=== PATIENT | female | born 1940 | race Caucasian/White ===

== ENCOUNTER 2023-08-11 07:59 | Inpatient (IN) | payer MEDICARE ==
[2023-08-11] VITALS (26 sets, daily range): BP systolic 122–172; BP diastolic 52–128
[~2023-08-11] VITALS: Ht 157.5 cm; Wt 49.2 kg
[~2023-08-11 07:59] MED LIST: AMLODIPINE5 MG OR; ASPIRIN325 MG OR; EQ IBUPROFEN200 MG OR; LEVOTHYROXIN25 MC1 PO; LEVOTHYROXIN50 MC1 PO; LEVOTHYROXIN50 MCG PO; LISINOPRIL5 MG OR
--- NOTE | 2023-08-11 08:05 | NUR ---
PT TO ROOM 9 VIA W/C, EKG, OBTAINED, ROOM NURSE NARN & PROVIDER NOTIFIED OF PT STATUS, AT BEDSIDE, CALL LIGHT IN REACH.
--- NOTE | 2023-08-11 08:20 | NUR ---
AFTER [address] MCCULLOUGH AT THE BEDSIDE TO ASSESS AND DISCUSS PLAN OF CARE. CARDIZEM BOLUS GIVEN AND CARDIZEM GTT INITIATED. HR AT THIS TIME IS 102.
[2023-08-11 09:02] LABS: BASO% 0.2 % (0-3); EOS% 0.2 % (0-8); HEMATOCRIT 41.6 % (37.0-47.0); IMMATURE GRANULOCYTES 0.3 % (0.0-5.0); LYMPH% 8.6 % (15-41); MEAN CELL VOLUME 93.3 fL CALC (80.0-100.0); MEAN CORPUSCULAR HGB 29.1 pG CALC (26.0-32.0); MEAN CORPUSCULAR HGB CONC 31.3 g/dL CAL (32.0-36.0); MONO% 7.8 % (2-13); NEUT# 10.45 thou/uL (2.00-7.15); NEUT% 82.9 % (42-76); RED BLOOD COUNT 4.46 mill/uL (4.20-5.60); RED CELL DISTRI WIDTH 13.1 % (11.5-15.5)
--- NOTE | 2023-08-11 09:26 | NUR ---
PATIENT RESTING. HR HAS IMPROVED. PATIENT STATES SHE IS FEELING MUCH BETTER. OXYGEN REMAINS IN PLACE.
[2023-08-11 09:37] LABS: ALBUMIN 4.3 g/dL (3.2-5.0); ANION GAP 20 (6-22 (CALC)); BUN 26 mg/dL (8-23); BUN/CREATININE RATIO 27 (12-20 (CALC)); CARBON DIOXIDE 22 mmol/l (22-30); CHLORIDE 102 mmol/l (95-108); GFR FOR AFR.AMER. > 60 ML/MIN (>=60 (CALC)); GFR OTHER RACES 53 ML/MIN (>=60 (CALC)); POTASSIUM 4.5 mmol/l (3.5-5.1); SODIUM 139 mmol/l (137-146)
[2023-08-11 09:41] LABS: ALKALINE PHOSPHATASE 177 u/l (38-126); BILIRUBIN, TOTAL 1.2 mg/dL (0.02-1.3); SGOT/AST 48 u/l (9-36)
--- NOTE | 2023-08-11 11:21 | NUR ---
accompained patient to radiology for a cta of the chest to r/o pe. Cardizem gtt continues at 10mg per hour.
--- NOTE | 2023-08-11 13:38 | NUR ---
PATIENT TO BE ADMITTED TO THE ICU ON A CARDIZEM GTT FOR NEW ONSET AFIB WITH RVR, PNUEMONIA AND STABLE ABDOMINAL ANURYSM.
--- NOTE | 2023-08-11 15:00 | NUR ---
PATIENT TAKEN TO ICU, BEDSIDE REPORT TO BE GIVEN TO RECIEVING NURSE. CARDIZEM GTT CONTINUES AT 15MG/HR.
--- NOTE | 2023-08-11 15:12 | NUR ---
PATIENT ARRIVED TO THE UNIT VIA STRETCHER ACCOMPAINED BY ER STAFF. PATIENT IS ALERT AND ORIENTED X 3. LUNGS CLEAR TO ASCULTATION. BREATHING EVEN AND UNLABORED ON 2L NC. DENIES PAIN AT THIS TIME. PATIENT AMBULATED FROM STRETCHER TO BED WITH MIN ASSIST. AFIB ON THE MONITOR. STATES SHE HAS NOT SEEN A PROVIDER X 20 YEARS, DOES NOT TAKE HOME MEDICATIONS. AFEBRILE. PERIPHERAL PULSES STRONG. STATES THAT SHE HAS A PROLAPSED BLADDER. NO APPARENT DISTRESS NOTED. CALLL LIGHT NEXT TO R HAND. WILL CONTINUE WITH PLAN OF CARE.
--- NOTE | 2023-08-11 16:00 | NUR ---
PATIENT SITTING UP IN BED. DENIES PAIN. NO APPARENT DISTRESS NOTED. AFIB ON THE MONITOR. WILL COTNINUE WITH PLAN OF CARE.
--- NOTE | 2023-08-11 18:00 | NUR ---
PATIENT SITTING UP IN BED. AT BEDSIDE. DENIES PAIN. AFIB ON THE MONITOR. NO APPARENT DISTRESS NOTED. WILL CONTINUE WITH PLAN OF CARE.
--- NOTE | 2023-08-11 19:00 | NUR ---
REPORT RECEIVED FROM OFF GOING NURSE.
--- NOTE | 2023-08-11 20:00 | NUR ---
PATIENT NOTED SITTING UP IN BED WITH SPOUSE AT BEDSIDE. SHE WAS ASSISTED TO RESTROOM WITH STANDBY ASSIST. SHE HAS A STEADY GAIT. SHE REFUSES TO USE THE BEDSIDE COMMODE. HER OUTPUT IS NOTED ADEQUATE. ASSESSMENT COMPLETED (SEE INTERVENTIONS). HER CARDIZEM WAS DECREASED FROM 10-5. WILL CONTINUE TO MONITOR AND TITRATE DRIP TOLERATED.
--- NOTE | 2023-08-11 22:00 | NUR ---
NO CHANGES NOTED, DRIP STILL RUNNING AT 5. WILL CONTINUE TO MONITOR.
--- NOTE | 2023-08-12 00:20 | NUR ---
CARDIZEM DRIP STOPPED. PATIENT STILL IN A FIB. HR NOTED CONTROLLED AT THIS TIME. WILL CONTINUE TO MONITOR.
[2023-08-12 05:26] LABS: BASO% 0.3 % (0-3); EOS% 1.3 % (0-8); HEMATOCRIT 36.5 % (37.0-47.0); HEMOGLOBIN 11.6 g/dl (12.0-16.0); IMMATURE GRANULOCYTES 0.8 % (0.0-5.0); LYMPH% 8.8 % (15-41); MEAN CELL VOLUME 93.4 fL CALC (80.0-100.0); MEAN CORPUSCULAR HGB 29.7 pG CALC (26.0-32.0); MEAN CORPUSCULAR HGB CONC 31.8 g/dL CAL (32.0-36.0); MONO% 7.8 % (2-13); NEUT# 11.73 thou/uL (2.00-7.15); RED BLOOD COUNT 3.91 mill/uL (4.20-5.60); RED CELL DISTRI WIDTH 13.4 % (11.5-15.5)
[2023-08-12 05:48] LABS: ALBUMIN 3.5 g/dL (3.2-5.0); ALKALINE PHOSPHATASE 147 u/l (38-126); ANION GAP 15 (6-22 (CALC)); BUN 20 mg/dL (8-23); BUN/CREATININE RATIO 23 (12-20 (CALC)); CARBON DIOXIDE 22 mmol/l (22-30); CHLORIDE 108 mmol/l (95-108); CREATININE 0.9 mg/dL (0.5-1.0); GFR FOR AFR.AMER. > 60 ML/MIN (>=60 (CALC)); GFR OTHER RACES 60 ML/MIN (>=60 (CALC)); HDL CHOLESTEROL 37 mg/dL (39.0-59.0); MAGNESIUM 2.1 mg/dL (1.6-2.3); POTASSIUM 4.2 mmol/l (3.5-5.1); SGOT/AST 30 u/l (9-36); SODIUM 141 mmol/l (137-146); TOTAL PROTEIN 6.6 g/dL (6.3-8.2); TOTAL TRIGLYCERIDES 70 mg/dl (0-149); VLDL CHOLESTROL 14 mg/dl (0-48 (CALC))
[2023-08-12 05:50] LABS: BILIRUBIN, TOTAL 0.7 mg/dL (0.02-1.3); CALCULATED LDLCHOLESTEROL 66 mg/dL (62-129 (CALC)); CHOLESTEROL HDL RATIO 3.2 (<4.4 (CALC)); TOTAL CHOLESTEROL 117 mg/dl (0-199)
--- NOTE | 2023-08-12 07:26 | NUR ---
PATIENT SITTING UP IN BED. ALERT AND ORIENTED X 3. STATES SHE EXPERIENCED BACK PAIN LAST NIGHT, BUT DENIES ANY PAIN THIS MORNING. AFEBRILE. AFIB ON THE MONITOR. LUNGS CLEAR TO ASCULTATON. 20 R/LAC FLUSHES WELL, NS KVO. SKIN IS DRY WITH AGE RELATED CHANGES, BUT INTACT. BP SLIGHTLY ELEVATED. PATIENT STATED SHE HAS A PROLAPSED BLADDER THAT "DOES NOT BOTHER HER". BREATHING EVEN AND UNLABORED AT 2L NC. DENIES USING OXYGEN AT HOME. NO APPARENT DISTRESS NOTED. BED IN LOW POSITION. CALL LIGHT RESTING NEXT TO RIGHT HAND. WILL CONTINUE WITH PLAN OF CARE.
--- NOTE | 2023-08-12 09:24 | NUR ---
CARDIZEM GTT RESTARTED AT 10 mL/hr.
--- NOTE | 2023-08-12 10:19 | NUR ---
PATIENT UP TO CHAIR. AT BEDSIDE. AFIB ON THE MONITOR. DENIES PAIN. NO APPARENT DISTRESS NOTED. WILL CONTINUE WITH PLAN OF CARE.
--- NOTE | 2023-08-12 10:21 | NUR ---
CHENGET OFFERED BED BATH AND DECLINED.
--- NOTE | 2023-08-12 12:24 | NUR ---
PATIENT SITTING UP IN BED EATING LUNCH. AT BEDSIDE. DENIES PAIN AT THIS TIME. AFIB ON THE MONITOR. CARDIZEM GTT AT 15 ML/HR. NO APPARENT DISTRESS NOTED. BED IN LOW POSITION. CALL LIGHT NEXT TO R LEG. WILL CONTINUE WITH PLAN OF CARE.
--- NOTE | 2023-08-12 14:14 | NUR ---
PATIENT SITTING UP IN BED. 20G IN LAC FOUND DISLODGED, REMOVED. AFIB ON THE MONITOR. CARDIZEM AT 15 mL/hr. PATIENT DENIES PAIN. NO APPARENT DISTRESS NOTED. BED IN LOW POSITION. AT BEDSIDE. WILL CONTINUE WITH PLAN OF CARE.
--- NOTE | 2023-08-12 16:00 | NUR ---
PATIENT SITTING UP IN BED. DENIES PAIN AT THIS TIME. AFIB ON THE MONITOR. NO APPARENT DISTRESS NOTED. WILL CONTINUE WITH PLAN OF CARE.
--- NOTE | 2023-08-12 18:48 | NUR ---
PATIENT SITTING UP IN BED. NO APPARENT DISTRESSS NOTED. WILL CONTINUE WITH PLAN OF CARE.
--- NOTE | 2023-08-12 19:00 | NUR ---
REPORT RECEIVED FROM OFF GOING NURSE. FREDDY MASTERS NOTED AT 15 AT THIS TIME NOTED 92-104.
--- NOTE | 2023-08-12 19:12 | NUR ---
CARDIZEM DRIP TITRATED DOWN TO 10 DUE TO HR IN THE MID 90S- LOW 100S. WILL CONTINUE TO TITRATE DRIP NEEDED.
--- NOTE | 2023-08-12 19:29 | NUR ---
PATIENT NOTED SITTING UP IN BED WITH NO ACUTE DISTRESS NOTED. SHE DENIES ANY PAIN OR DISCOMFORT. CARDIZEM STILL RUNNING AT 10. ASSESSMENT COMPLETED (SEE INTERVENTIONS). WILL CONTINUE TO MONITOR AND TITRATE DRIP NEEDED.
--- NOTE | 2023-08-12 20:18 | NUR ---
BOROUGH COORDINATOR IN TO SEE PATIENT.
--- NOTE | 2023-08-12 22:00 | NUR ---
CARDIZEM DRIP DECREASED TO 5. WILL CONTINUE TO MONITOR AND DECREASE CARDIZEM TOLERATED BY PATIENT.
--- NOTE | 2023-08-13 | NUR ---
NO CHANGES NOTED. WILL CONTINUE TO MONITOR.
--- NOTE | 2023-08-13 02:00 | NUR ---
NO CHANGES NOTED. WILL CONTINUE TO MONITOR.
--- NOTE | 2023-08-13 04:00 | NUR ---
CARDIZEM STILL RUNNING AT 5. NO ACUTE DISTRESS NOTED. WILL CONTINUE TO MONITOR.
[2023-08-13 04:54] LABS: BASO% 0.2 % (0-3); EOS% 0.8 % (0-8); HEMATOCRIT 34.3 % (37.0-47.0); HEMOGLOBIN 10.9 g/dl (12.0-16.0); IMMATURE GRANULOCYTES 0.2 % (0.0-5.0); LYMPH% 6.3 % (15-41); MEAN CELL VOLUME 92.5 fL CALC (80.0-100.0); MEAN CORPUSCULAR HGB 29.4 pG CALC (26.0-32.0); MEAN CORPUSCULAR HGB CONC 31.8 g/dL CAL (32.0-36.0); MONO% 8.9 % (2-13); NEUT# 13.98 thou/uL (2.00-7.15); NEUT% 83.6 % (42-76); RED BLOOD COUNT 3.71 mill/uL (4.20-5.60); RED CELL DISTRI WIDTH 13.3 % (11.5-15.5)
[2023-08-13 05:10] LABS: ALBUMIN 3.2 g/dL (3.2-5.0); ALKALINE PHOSPHATASE 123 u/l (38-126); ANION GAP 13 (6-22 (CALC)); BILIRUBIN, TOTAL 0.7 mg/dL (0.02-1.3); BUN 27 mg/dL (8-23); BUN/CREATININE RATIO 30 (12-20 (CALC)); CARBON DIOXIDE 24 mmol/l (22-30); CHLORIDE 106 mmol/l (95-108); CREATININE 0.9 mg/dL (0.5-1.0); GFR FOR AFR.AMER. > 60 ML/MIN (>=60 (CALC)); GFR OTHER RACES 60 ML/MIN (>=60 (CALC)); POTASSIUM 3.7 mmol/l (3.5-5.1); SGOT/AST 27 u/l (9-36); SODIUM 139 mmol/l (137-146); TOTAL PROTEIN 6.3 g/dL (6.3-8.2)
--- NOTE | 2023-08-13 06:00 | NUR ---
SAVANNAH STILL RUNNING AT 5. NO ACUTE DISTRESS NOTED.
--- NOTE | 2023-08-13 07:38 | NUR ---
PATIENT UP TO THE SIDE OF THE BED FOR BREAKFAST. STATES SHE IS HAVING SOME PAIN IN HER R LEG THAT IS D/T STIFFNESS. DECLINED PAIN RELIEF MEASURES AT THIS TIME. CONTROLLED AFIB ON THE MONITOR. BREATHING EVEN AND UNLABORED ON 2L NC. LUNGS CLEAR TO ASCULTAITON. AFEBRILE. STRONG PERIPHERAL PULSES. NO APPARENT DISTRESS NOTED. BED IN LOW POSITION. CALL LIGHT RESTING NEXT TO LEFT LEG. WILL CONTINUE WITH PLAN OF CARE.
--- NOTE | 2023-08-13 10:17 | NUR ---
LYING IN BED. AT BEDSIDE. STATES LEG PAIN HAS IMPROVED. NO APPARENT DISTRESS NOTED. WILL CONTINUE WITH PLAN OF CARE.
--- NOTE | 2023-08-13 12:11 | NUR ---
DISCUSSED PLACING PATIENT ON CARDIZEM GTT WITH DR. APARICIO. PLAN IS TO HOLD ON MED FOR NOW.
--- NOTE | 2023-08-13 12:25 | NUR ---
PATIENT SITTING UP IN BED. AT BEDSIDE. DENIES ANY ISSUES OR CONCERNS AT THIS TIME. CONTROLLED AFIB ON THE MONITOR. WILL CONTINUE WITH PLAN OF CARE.
--- NOTE | 2023-08-13 14:00 | NUR ---
PATIENT SITTING UP IN BED. AT BEDSIDE. DENIES PAIN. NO APPARENT DISTRESS NOTED. WILL CONTINU WITH PLAN OF CARE.
--- NOTE | 2023-08-13 16:01 | NUR ---
PATIENT APPEARS TO BE RESTING WITH EYES CLOSED. NO APPARENT DISTRESS NOTED. AFIB ON THE MONITOR. BED IN LOW POSITION. CALL LIGHT RESTING IN R HAND. WILL CONTINUE WITH PLAN OF CARE.
--- NOTE | 2023-08-13 18:05 | NUR ---
PATIENT TACHY WITH EXERTION. DISCUSSED WITH DR. APARICIO. WILL RESUME CARDIZEM GTT AT 10 mL/hr.
--- NOTE | 2023-08-13 18:27 | NUR ---
PATIENT BACK TO BED. DENIES PAIN AT THIS TIME. ST ON THE MONITOR. CARDIZEM GTT RESTARTED AT 10. NO APPARENT DISTRESS NOTED. WILL CONTINEU WITH PLAN OF CARE.
--- NOTE | 2023-08-13 19:30 | NUR ---
PATIENT HR NOTED IN AFIB WITH HR BETWEEN 130S-150S WHILE AT REST. MD MADE AWARE, AWAITING ANY NEW ORDERS.
--- NOTE | 2023-08-13 19:40 | NUR ---
ASSESSMENT COMPLETED (SEE INTERVENTIONS). NEW ORDER FOR AMIO BOLUS/ DRIP NOTED. PATIENT STILL AFIB RVR. BOLUS GIVEN AND DRIP STARTED PER PROTOCOL. WILL CONTINUE TO MONITOR PATIENT CLOSELY. NO ACUTE DISTRESS NOTED. SHE DENIES ANY PAIN OR DISCOMFORT AT THIS TIME.
--- NOTE | 2023-08-13 22:00 | NUR ---
NO CHANGES NOTED WILL CONTINUE TO MONITOR.
--- NOTE | 2023-08-14 | NUR ---
AMIO STILL GOING AT 1. SHE IS CONTROLLED AFIB ON THE MONITOR. NO ACUTE DISTRESS NOTED. WILL CONTINUE TO MONITOR.
--- NOTE | 2023-08-14 02:00 | NUR ---
PATIENT RESTING COMFORTABLY AT THIS TIME AMIO DRIP GOING. SHE IS IN CONTROLLED AFIV AT THIS TIME. WILL CONTINUE TO MONITOR.
--- NOTE | 2023-08-14 04:00 | NUR ---
NO CHANGES NOTED. PATIENT ASSISTED TO BATHROOM TO HAVE A BM. LARGE BM NOTED. WILL CONTINUE TO MONITOR. SHE IS ON AMIO AT 0.5 AT THIS TIME.
[2023-08-14 05:08] LABS: BASO% 0.3 % (0-3); EOS% 0.9 % (0-8); HEMOGLOBIN 10.4 g/dl (12.0-16.0); IMMATURE GRANULOCYTES 0.3 % (0.0-5.0); LYMPH% 6.5 % (15-41); MEAN CELL VOLUME 91.9 fL CALC (80.0-100.0); MEAN CORPUSCULAR HGB CONC 31.5 g/dL CAL (32.0-36.0); MONO% 8.6 % (2-13); NEUT# 11.41 thou/uL (2.00-7.15); NEUT% 83.4 % (42-76); RED BLOOD COUNT 3.59 mill/uL (4.20-5.60); RED CELL DISTRI WIDTH 13.2 % (11.5-15.5)
[2023-08-14 05:30] LABS: ALKALINE PHOSPHATASE 114 u/l (38-126); ANION GAP 14 (6-22 (CALC)); BILIRUBIN, TOTAL 0.6 mg/dL (0.02-1.3); BUN 23 mg/dL (8-23); BUN/CREATININE RATIO 31 (12-20 (CALC)); CARBON DIOXIDE 21 mmol/l (22-30); CHLORIDE 107 mmol/l (95-108); CREATININE 0.8 mg/dL (0.5-1.0); GFR FOR AFR.AMER. > 60 ML/MIN (>=60 (CALC)); GFR OTHER RACES > 60 ML/MIN (>=60 (CALC)); MAGNESIUM 1.9 mg/dL (1.6-2.3); POTASSIUM 3.5 mmol/l (3.5-5.1); SGOT/AST 23 u/l (9-36); SODIUM 138 mmol/l (137-146)
--- NOTE | 2023-08-14 06:00 | NUR ---
NO CHANGES NOTED.
--- NOTE | 2023-08-14 08:00 | NUR ---
RCD REPORT FORM NIGTHSHIFT. PT IS A/OX3, AMBULATES A STANDBY ASSIST. LUNGS ARE CLEAR. PT IS PLEASANT AND FOLLOWS COMMANDS. SKIN INTACT, BUT THIN AND FRAGILE. PULSES PALPABLE. HR IS AFIB ON MONITOR. ON AMIO DRIP, NOT REPOSNDING WELL TO TX OPTION. WILL DISCUSS NEXT PLAN WITH CARDIOILOGIST. DNEIES ANY COMPLAINTS AT THIS TIME.
--- NOTE | 2023-08-14 10:00 | NUR ---
PENDING CARDIO CONSULT AND TX NEXT STEPS
--- NOTE | 2023-08-14 12:00 | NUR ---
PT SITTING UP EATING LUNCH
--- NOTE | 2023-08-14 14:00 | NUR ---
UP TO BATHROOM. DNEIES ANY COMPLAINTS
[2023-08-14 15:46] LABS: URINE BILIRUBIN - DIPSTICK Negative (NEGATIVE); URINE BLOOD DIPSTICK Negative (NEGATIVE); URINE GLUCOSE - DIPSTICK Negative (NEGATIVE); URINE KETONE Negative (NEGATIVE); URINE NITRITE - DIPSTICK Negative (Negative); URINE PROTEIN - DIPSTICK 30 mg/dL (NEG-TRACE); URINE SPECIFIC GRAVITY 1.025; URINE UROBILINOGEN - DIPSTICK 0.2 E.U./dL (0.2)
[2023-08-14 15:47] LABS: URINE COLOR Yellow; URINE LEUK ESTERASE Small (NEGATIVE)
--- NOTE | 2023-08-14 16:00 | NUR ---
PT SITTING UP WATCHING TV. DENIES ANY COMPLAINTS. CARDIO CAME ON
[2023-08-14 16:38] LABS: URINE SQUAMOUS EPITHELIAL CELL FEW EPI/hpf (0-FEW)
--- NOTE | 2023-08-14 18:02 | NUR ---
PT BACK IN BED. DENIES ANY COMPLAINTS AT THIS TIME
--- NOTE | 2023-08-14 19:00 | NUR ---
REPORT RECEIVED FROM OFF GOING NURSE.
--- NOTE | 2023-08-14 20:00 | NUR ---
PATIENT NOTED RESTING IN BED WITH NO ACUTE DISTRESS NOTED. HE AMIO DRIP NOTED OFF AT THIS TIME. SHE IS IN CONTROLLED AFIB. ASSESSMENT COMPLETED (SEE INTERVENTIONS). SHE DENIES ANY PAIN OR DISCOMFORT AT THIS TIME. WILL CONTINUE TO MONITOR.
--- NOTE | 2023-08-14 22:00 | NUR ---
NO CHANGES NOTED. WILL CONTINUE TO MONITOR.
--- NOTE | 2023-08-15 | NUR ---
PATIENT NOTED IN CONTROLLED AFIB AT THIS TIME. SHE IS RESTING COMFORTABLY WITH NO ACUTE DISTRESS NOTED. WILL CONTINUE TO MONITOR.
--- NOTE | 2023-08-15 02:00 | NUR ---
PATIENT SLEEPING WITH NO ACUTE DISTRESS NOTED. WILL CONTINUE TO MONITOR.
--- NOTE | 2023-08-15 04:00 | NUR ---
PATIENT SLEEPING WITH NO ACUTE DISTRESS NOTED.
[2023-08-15 07:17] LABS: ALKALINE PHOSPHATASE 114 u/l (38-126); ANION GAP 15 (6-22 (CALC)); BILIRUBIN, TOTAL 0.6 mg/dL (0.02-1.3); BUN 24 mg/dL (8-23); BUN/CREATININE RATIO 28 (12-20 (CALC)); CARBON DIOXIDE 21 mmol/l (22-30); CHLORIDE 106 mmol/l (95-108); CREATININE 0.9 mg/dL (0.5-1.0); GFR FOR AFR.AMER. > 60 ML/MIN (>=60 (CALC)); GFR OTHER RACES 60 ML/MIN (>=60 (CALC)); MAGNESIUM 1.7 mg/dL (1.6-2.3); POTASSIUM 3.2 mmol/l (3.5-5.1); SGOT/AST 28 u/l (9-36); SODIUM 139 mmol/l (137-146)
[2023-08-15 07:18] LABS: BASO% 0.3 % (0-3); EOS% 0.2 % (0-8); HEMATOCRIT 35.6 % (37.0-47.0); HEMOGLOBIN 11.4 g/dl (12.0-16.0); IMMATURE GRANULOCYTES 0.1 % (0.0-5.0); LYMPH% 10.2 % (15-41); MEAN CELL VOLUME 91.5 fL CALC (80.0-100.0); MEAN CORPUSCULAR HGB 29.3 pG CALC (26.0-32.0); MONO% 8.3 % (2-13); NEUT# 10.82 thou/uL (2.00-7.15); NEUT% 80.9 % (42-76); RED BLOOD COUNT 3.89 mill/uL (4.20-5.60); RED CELL DISTRI WIDTH 13.4 % (11.5-15.5)
--- NOTE | 2023-08-15 08:00 | NUR ---
RECEIVED REPORT FROM NIGHTSHIFT NURSE. PATIENT IS ALERT AND ORIENTED X3, ANSWERS QUESTIONS AND RESPONDS TO COMMANDS APPROPRIATELY. LUNGS SOUNDS CLEAR IN ALL LOBES, ON 1L NC, PERRLA, MOVES ALL EXTREMIES WITH NO ISSUES, SKIN INTACT,S1+S2 HEART SOUNDS HEARD, ON SPEED OPERATOR RUNNING AFIB HR 110S DENIES ANY CHEST PAIN, PITTING EDEMA TO BILATERAL LOWER EXTREMITES, STANDY BY ASSIST TO BATHROOM
--- NOTE | 2023-08-15 10:00 | NUR ---
PATIENT IS SITTING UP IN BED EATING BREAKFAST, PATIENT VISITOR AT BEDSIDE. PATIENT IS ON TELEMETRY, AFIB ON MONITOR RUNNING 100S-110S, UP TO BATHROOM WITH STAND BY ASSIST
--- NOTE | 2023-08-15 12:00 | NUR ---
denies any complaints at this time. per md, pt will stay another night.
--- NOTE | 2023-08-15 14:00 | NUR ---
pt resting in bed and talking to who is at bedside.
--- NOTE | 2023-08-15 16:00 | NUR ---
pt is watching tv and resting in bed stable. denies any complaints at this itme
--- NOTE | 2023-08-15 18:00 | NUR ---
pt resting in bed denies any complaints at this time. eating dinner
--- NOTE | 2023-08-15 20:09 | NUR ---
hand off report received from kenny
--- NOTE | 2023-08-15 20:18 | NUR ---
patient oob to the bathroom, able to ambulate independently.
--- NOTE | 2023-08-15 21:47 | NUR ---
PATIENT RESTING QUIETLY WITH EYES CLOSED, RESPIRATIONS EVEN AND UNLABORED ON O2@2L BY NC, NO C/O PAIN OR DISCOMFORT, NO S/S OF DISTRESS NOTED, LIGHTS OUT FOR COMFORT, PATIENT AMBULATORY WITHOUT ASSISTANCE, CALL LIGHT WITHIN REACH, PATIENT EDUCATED O CALL WHEN SHE NEEDS TO GET OUT OF BED.
[2023-08-16] VITALS (21 sets, daily range): BP systolic 34–150; BP diastolic 21–108
--- NOTE | 2023-08-16 | NUR ---
RESTING QUIETLY, NO COMPLAINTS
--- NOTE | 2023-08-16 04:00 | NUR ---
PATIENT RESTING QUIETLY, NO COMPLAINTS
--- NOTE | 2023-08-16 06:00 | NUR ---
RESTING QUIETLY WITH EYES CLOSED, NO S/S OF DISTRESS NOTED
[2023-08-16 07:19] LABS: HEMATOCRIT 39.6 % (37.0-47.0); HEMOGLOBIN 12.4 g/dl (12.0-16.0); MEAN CELL VOLUME 91.2 fL CALC (80.0-100.0); MEAN CORPUSCULAR HGB 28.6 pG CALC (26.0-32.0); MEAN CORPUSCULAR HGB CONC 31.3 g/dL CAL (32.0-36.0); RED BLOOD COUNT 4.34 mill/uL (4.20-5.60); RED CELL DISTRI WIDTH 13.3 % (11.5-15.5)
[2023-08-16 07:45] LABS: ALBUMIN 3.2 g/dL (3.2-5.0); ALKALINE PHOSPHATASE 123 u/l (38-126); BILIRUBIN, TOTAL 0.6 mg/dL (0.02-1.3); BUN 26 mg/dL (8-23); BUN/CREATININE RATIO 26 (12-20 (CALC)); CARBON DIOXIDE 24 mmol/l (22-30); CHLORIDE 104 mmol/l (95-108); GFR FOR AFR.AMER. > 60 ML/MIN (>=60 (CALC)); GFR OTHER RACES 53 ML/MIN (>=60 (CALC)); MAGNESIUM 2.1 mg/dL (1.6-2.3); SGOT/AST 26 u/l (9-36); SODIUM 139 mmol/l (137-146); TOTAL PROTEIN 6.4 g/dL (6.3-8.2)
[2023-08-16 07:47] LABS: ANION GAP 15 (6-22 (CALC)); POTASSIUM 4.1 mmol/l (3.5-5.1)
--- NOTE | 2023-08-16 10:40 | NUR ---
PT SEEN BY DR DOHERTY THIS AM. CARDIOLOGY CONSULT ALSO SAW HER. MEDS BEING ADJUSTED. FAMILY AT BEDSIDE.
--- NOTE | 2023-08-16 13:14 | NUR ---
FAMILY AT BEDSIDE. PT REMAINS AFIB IN THE 100 RANGE. NO COMPLAINTS OF PALPITATIONS OR SOB.
--- NOTE | 2023-08-16 16:08 | NUR ---
FAMILY HAS GONE HOME. PT STILL HOPEFUL FOR DISCHARGE LATER TODAY, BUT DR DOHERTY HAS NOT RETURNED. WHEN PT AMBULATED TO BR, RATE WENT FROM 100 TO 140, BUT RETURNED TO BASELINE SHORTLY THEREAFTER. NO SHORTNESS OF BREATH OR CHEST PAIN OR PALPITATIONS.
--- NOTE | 2023-08-16 17:55 | NUR ---
PT AWARE OF NEED TO BE IN HOSPITAL ANOTHER NIGHT. DR DOHERTY AT BEDSIDE TO EXPLAIN PLAN OF CARE. PT CONTINUES TO AMBULATE TO BR WITH MINIMAL ASSIST.
--- NOTE | 2023-08-16 19:15 | NUR ---
awake. watching tv. denies distress. 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 saline lock in place lfa. assisted to br. pena well. fall precautions cont.
--- NOTE | 2023-08-16 22:00 | NUR ---
amb to br. pena well.
[2023-08-17] VITALS (14 sets, daily range): BP systolic 120–153; BP diastolic 63–95
--- NOTE | 2023-08-17 00:01 | NUR ---
eyes closed. no distress. party plan salesperson shows a fib.
--- NOTE | 2023-08-17 02:30 | NUR ---
amb to br. pena well.
--- NOTE | 2023-08-17 04:09 | NUR ---
resting quietly. resps even & unlabored. no apparent distress.
--- NOTE | 2023-08-17 04:40 | NUR ---
lab here. blood drawn.
--- NOTE | 2023-08-17 06:00 | NUR ---
amb to br to void. becky well.
[2023-08-17 06:02] LABS: BASO% 0.2 % (0-3); EOS% 1.1 % (0-8); HEMATOCRIT 36.4 % (37.0-47.0); HEMOGLOBIN 11.6 g/dl (12.0-16.0); IMMATURE GRANULOCYTES 0.2 % (0.0-5.0); LYMPH% 9.2 % (15-41); MEAN CORPUSCULAR HGB CONC 31.9 g/dL CAL (32.0-36.0); MONO% 8.1 % (2-13); NEUT# 13.65 thou/uL (2.00-7.15); NEUT% 81.2 % (42-76); RED CELL DISTRI WIDTH 13.2 % (11.5-15.5)
[2023-08-17 06:16] LABS: ALBUMIN 3.1 g/dL (3.2-5.0); ALKALINE PHOSPHATASE 115 u/l (38-126); ANION GAP 15 (6-22 (CALC)); BILIRUBIN, TOTAL 0.6 mg/dL (0.02-1.3); BUN 23 mg/dL (8-23); BUN/CREATININE RATIO 26 (12-20 (CALC)); CARBON DIOXIDE 25 mmol/l (22-30); CHLORIDE 101 mmol/l (95-108); CREATININE 0.9 mg/dL (0.5-1.0); GFR FOR AFR.AMER. > 60 ML/MIN (>=60 (CALC)); GFR OTHER RACES 60 ML/MIN (>=60 (CALC)); MAGNESIUM 1.7 mg/dL (1.6-2.3); POTASSIUM 3.5 mmol/l (3.5-5.1); SGOT/AST 24 u/l (9-36); SODIUM 137 mmol/l (137-146); TOTAL PROTEIN 6.1 g/dL (6.3-8.2)
--- NOTE | 2023-08-17 10:17 | NUR ---
PT ALERT AND ORIENTED X 3. PT WANTS TO GO HOME TODAY. MEDS PROVIDED ORDERED, HR SEEN IN 70s AT REST.
[2023-08-17] MEDS ORDERED: LOPRESSOR 550 MG/TAB PO (11:39)
[2023-08-17] MEDS ORDERED: CORDARONE/200 MG/TAB PO (11:39)
[2023-08-17] MEDS ORDERED: MUCINEX600 MG PO (11:40)
[2023-08-17] MEDS ORDERED: CARDIZEM CD240 MG PO (11:41)
[2023-08-17] MEDS ORDERED: LEVAQUIN750 M1 PO (11:42)
[2023-08-17] MEDS ORDERED: ELIQUIS2.5 MG PO (11:42)
[2023-08-17] MEDS ORDERED: LASIX 20 MG TAB20 MG PO (11:43)
--- NOTE | 2023-08-17 12:26 | NUR ---
PT VERBALIZES UNDERSTANDING OF DC INSTRUCTIONS, TAKEN BY WHEELCHAIR TO LOBBY. PT LEAVES [facility] IN STABLE CONDITION.
== END 2023-08-17 12:15 | disposition home or self-care (01) | DRG 308 ==
LOC: ED 07:59 → ED-I 09:56 → ED 09:56 → ICU 13:18
PROVIDERS: Family Medicine; Student in an Organized Health Care Education/Training Program; ADMIT Student in an Organized Health Care Education/Training Program; ATTEND Student in an Organized Health Care Education/Training Program
DX: I48.91 Unspecified atrial fibrillation (principal); J18.9 Pneumonia, unspecified organism; I50.30 Unspecified diastolic (congestive) heart failure; I11.0 Hypertensive heart disease with heart failure; I71.21 Aneurysm of the ascending aorta, without rupture; Z20.822 Contact with and (suspected) exposure to COVID-19
CPT/HCPCS: J0282; J0692; J1650; J3475; Q9967